=== PATIENT | male | born 1970 | race African-American/Black ===

== ENCOUNTER 2021-03-29 10:53 | Emergency (ER) | payer OTHER, SELFPAY ==
[2021-03-29 10:57] VITALS: BP 152/83; PULSE 94; RESP 16; TEMP 36.6; O2SAT 98
--- NOTE | 2021-03-29 11:08 | ECG_ITS ---
Measurements Intervals [place] Rate: 84 P: 55 MA: 174 QRS: 10 QRSD: 99 T: 67 QT: 360 QTc: 426 Interpretive Statements SINUS RHYTHM NORMAL ECG Electronically Signed On 03-29-2021 15:38:30 CDT by Hermann Mathur D.O.
--- NOTE | 2021-03-29 11:21 | ED.CHESTPAIN ---
HPI - Chest Pain General Chief Complaint: Chest Pain Stated Complaint: chest pain Source: patient and RN notes reviewed Mode of arrival: ambulatory History of Present Illness HPI narrative: This is a 42-year-old male that presented to urgent care today with complaints of chest pains. According to patient he developed chest pain yesterday that lasted approximately 30 minutes at rest. Patient does have a history of hyperlipidemia hypertension and diabetes. Patient notes that he developed more chest pains today he noted that it worsened when he inhaled. Patient noted that he googled the symptoms and attempted to call his primary care physician with no response that is why he proceeded to our office. He also noted that he had congestion and chills last week and was not sure if it could have possibly been pneumonia. Patient will transfer to [facility] he did refuse EMS transportation. Patient was advised against driving himself to the ED report given to Dr. Chen EKG sinus rhythm Related Data Home Medications Medication Instructions Recorded Confirmed atorvastatin 03/29/21 lisinopril-hydrochlorothiazide tablet 03/29/21 metformin mg PO 03/29/21 nebivolol mg 03/29/21 Allergies Allergy/AdvReac Type Severity Reaction Status Date / Time No Known Allergies Allergy Unverified 04/06/18 08:26 Review of Systems Review of Systems: A 14 organ system Review of Systems was performed and pertinent positives included in the HPI, otherwise remaining ROS is negative. [facility] Family History Family History (Updated 03/29/21 @ 11:23 by GURVINDER Valentine) Other Family history non-contributory Exam Narrative: GENERAL: This is a well-nourished, well-developed patient, in no apparent distress. HEAD: normocephalic, atraumatic. EYES: PERRL. Sclera clear/white. Vision is grossly intact. EARS: External ears normal, auditory canals clear and without drainage, TMs normal without perforation. Hearing grossly intact. NOSE: External nose normal with no obvious nasal discharge, nares without redness, no rhinorrhea. THROAT: Mucous membranes moist, posterior pharynx clear. NECK: Neck supple, non-tender without lymphadenopathy, masses or thyromegaly. CARDIOVASCULAR: Regular rate and rhythm without murmurs, gallops, or rubs. RESPIRATORY: Clear to auscultation. Breath sounds equal bilaterally. No wheezes, rales, or rhonchi. GASTROINTESTINAL: Abdomen soft, non-tender, nondistended. Bowel sounds are active. No hepato-splenomegaly, or palpable masses. No guarding. SKIN: warm, intact with no suspicious lesions or rash, good texture and turgor. NEURO: awake, alert, and oriented to person, place and time. There were no obvious focal neurologic abnormalities. Steady gait EXTREMITIES: Normal range of motion. No edema. No calf tenderness. Negative Homans sign bilaterally. BACK: Nontender without deformity or crepitance. No flank tenderness. Course Course Emergency Course: Patient was transferred to [facility] accepted by Dr. Chen Vital Signs Vital signs: Vital Signs Temperature 97.9 F 03/29/21 10:57 Pulse Rate 94 03/29/21 10:57 Respiratory Rate 16 03/29/21 10:57 Blood Pressure 152/83 H 03/29/21 10:57 Pulse Oximetry 98 03/29/21 10:57 Temperature 97.9 F 03/29/21 10:57 Pulse Rate 94 03/29/21 10:57 Respiratory Rate 16 03/29/21 10:57 Blood Pressure 152/83 H 03/29/21 10:57 Pulse Oximetry 98 03/29/21 10:57 Transfer Transfered to: [place] Transfer rationale: Further diagnostic tests needed Accepting physician: Dr Chen MDM - Chest Pain Differential Diagnosis Differential diagnosis: Likely stable angina, unstable angina pectoris, atypical chest pain, chest pain and other (Pneumonia) Discharge Plan Discharge Clinical Impression: Chest pain Patient Disposition: Acute Care Hospital Condition: Stable Additional Instructions: Transferred to [place] Prescriptions: No Action atorvasta
== END 2021-03-29 11:24 | disposition short-term general hospital (02) ==
PROVIDERS: Emergency Provider Nurse Practitioner; PCP Internal Medicine
DX: R07.9 Chest pain, unspecified (principal); E78.5 Hyperlipidemia, unspecified; I10 Essential (primary) hypertension; E11.9 Type 2 diabetes mellitus without complications
CPT/HCPCS: 93005; 99213; G0463

== ENCOUNTER 2021-03-29 11:41 | Emergency (ER) | payer OTHER, SELFPAY ==
[2021-03-29] VITALS (29 sets, daily range): BP systolic 108–139; BP diastolic 57–85; PULSE 83–97; RESP 12–21; TEMP 36.4–36.6; O2SAT 98–100
--- NOTE | ~2021-03-29 | XR_ITS ---
EXAMINATION: XR chest 2V DATE: 03/29/2021 12:27 INDICATION: Chest pain TECHNIQUE: PA and lateral views of the chest are obtained. COMPARISON: None available FINDINGS: The lungs are free of acute opacities. There is no pleural effusion or pneumothorax. The ca rdiomediastinal silhouette is normal. There is moderate thoracic spondylosis. IMPRESSION: 1. No acute cardiopulmonary abnormality. Reviewed, dictated and finalized at location A.
--- NOTE | 2021-03-29 12:02 | ECG_ITS ---
Measurements Intervals [employer] Rate: 89 P: 40 [place]: 171 QRS: 7 QRSD: 102 T: 60 QT: 361 QTc: 442 Interpretive Statements SINUS RHYTHM MINIMAL Q WAVES- HIGH LATERAL LEADS BASELINE WANDER- V5 BORDERLINE ECG Electronically Signed On 03-29-2021 15:43:00 CDT by Hermann Mathur D.O.
--- NOTE | 2021-03-29 12:20 | ED.GENADULT ---
HPI - General Adult General Chief complaint: Chest Pain Stated complaint: chest pain , sent from urgent care Time Seen by Provider: 03/29/21 11:58 Source: patient History of Present Illness HPI narrative: Patient is a 50 y/o male complaining of right sided chest pain starting about 7:30 PM yesterday. He describes his pain as a sharp and rates it as 7/10. Taking a deep breath seems to worsen the pain. There is no pain radiation. The chest pain lasted about 30 minutes and resolved spontaneously. He has no cough, fever or SOB. Related Data Home Medications Medication Instructions Recorded Confirmed atorvastatin 03/29/21 lisinopril-hydrochlorothiazide tablet 03/29/21 metformin mg PO 03/29/21 nebivolol mg 03/29/21 Allergies Allergy/AdvReac Type Severity Reaction Status Date / Time No Known Allergies Allergy Verified 03/29/21 12:00 Review of Systems Constitutional: Constitutional: Denies chills, Denies fever(s), Denies headache(s) and Denies weakness Eyes: Eyes: Denies blurry vision ENT: Denies headache(s) and Denies neck pain Cardiovascular: Cardiovascular: Reports chest pain and Denies dyspnea Respiratory: Respiratory: Denies cough and Denies dyspnea Gastrointestinal: Gastrointestinal: Denies abdominal pain, Denies diarrhea, Denies nausea and Denies vomiting Genitourinary: Genitourinary: Denies hematuria and Denies dysuria Musculoskeletal: Musculoskeletal: Denies back pain and Denies neck pain Neurologic: Denies headache(s) and Denies weakness [facility] Family History Family History Other Family history non-contributory Exam Const: General: no acute distress and well developed Orientation/consciousness: oriented to person, oriented to place, oriented to time and patient oriented x3 HENMT: Head: normocephalic Ears: external ears normal General nose exam: Normal external nose present Eyes: General: appearance normal, both eyes and all related structures Conjunctivae: conjunctivae normal Neck: Neck: normal visual inspection and full ROM Chest: Chest palpation & inspection: normal inspection of the chest and no tenderness Resp: Effort & Inspection: normal respiratory effort Auscultation: clear to auscultation bilaterally Cardio: Rate: regular rate Rhythm: regular rhythm GI: GI Palp: No abdominal tenderness and Yes Soft to palpation Skin: General skin exam: normal color and turgor normal Neuro: General: oriented to person, oriented to place, oriented to time and patient oriented x3 Cognition (Neuro): normal cognition Extrem: General: normal to inspection, full ROM and no pedal edema Psych: Appearance: grossly normal Mental Status: mental status grossly normal Affect: normal affect Course Vital Signs Vital signs: Vital Signs Temperature 36.4 C 03/29/21 11:55 Pulse Rate 94 03/29/21 11:55 Respiratory Rate 19 03/29/21 11:55 Blood Pressure 139/85 03/29/21 11:55 Pulse Oximetry 100 03/29/21 11:55 Temperature 36.6 C 03/29/21 16:42 Pulse Rate 88 03/29/21 16:42 Respiratory Rate 20 03/29/21 16:42 Blood Pressure 108/57 L 03/29/21 16:42 Pulse Oximetry 99 03/29/21 16:42 Medical Decision Making Vital Signs Vital Signs: Vital Signs Temperature 36.4 C 03/29/21 11:55 Pulse Rate 94 03/29/21 11:55 Respiratory Rate 19 03/29/21 11:55 Blood Pressure 139/85 03/29/21 11:55 Pulse Oximetry 100 03/29/21 11:55 Temperature 36.6 C 03/29/21 16:42 Pulse Rate 88 03/29/21 16:42 Respiratory Rate 20 03/29/21 16:42 Blood Pressure 108/57 L 03/29/21 16:42 Pulse Oximetry 99 03/29/21 16:42 Lab Data Result diagrams: 03/29/21 12:18 03/29/21 12:18 Labs: Lab Results 03/29/21 03/29/21 03/29/21 Range/Units 12:18 12:18 12:18 WBC 5.7 (4.5-10.0) K/mm3 RBC 4.82 (4.6-6.20) M/mm3 Hgb 14.1 (14.0-18.0) g/dL Hct 41.3 L (42.0-52.0) % MCV
--- NOTE | 2021-03-29 12:21 | PC.NURSE ---
Pt off floor to radiology
[2021-03-29 12:38] LABS: Alanine Aminotransferase 50 U/L (4-50); Albumin Level 4.9 g/dL (3.5-5.1); Alkaline Phosphatase 51 U/L (38-126); Anion Gap 11 mmol/L (8-16); Aspartate Amino Transferase 46 U/L (17-59); Bilirubin,Total 0.5 mg/dL (0.2-1.3); Blood Urea Nitrogen 22 mg/dL (9-20); Calcium 9.7 mg/dL (8.4-10.2); Carbon Dioxide 29 mmol/L (22-30); Chloride 102 mmol/L (98-107); Estimated CRCL calculation 93 ml/min; Estimated Glomerular Filt Rate > 60; Glucose 97 mg/dL (65-110); Potassium 3.9 mmol/L (3.4-5.0); Sodium 142 mmol/L (137-145)
[2021-03-29 12:39] LABS: Basophils Percent Auto 0.5 % (0.2-1.2); Eosinophils Absolute Auto 0.2 K/mm3 (0-0.3); Eosinophils Percent Auto 3.7 % (0-4.4); Hematocrit 41.3 % (42.0-52.0); Hemoglobin 14.1 g/dL (14.0-18.0); Immature Granulocyte Absolute 0.02 K/mm3 (0.00-0.031); Immature Granulocyte Percent A 0.4 % (0-0.5); Lymphocytes Percent Auto 40.3 % (18.3-44.2); Mean Corpuscular HGB Conc 34.1 g/dl (32-36); Mean Corpuscular Hemoglobin 29.3 pg (26-34); Mean Corpuscular Volume 85.7 fl (80-100); Mean Platelet Volume 10.3 fl (7.4-10.4); Monocytes Absolute Auto 0.6 K/mm3 (0.1-0.6); Monocytes Percent Auto 9.6 % (2.6-8.5); Neutrophils Absolute Auto 2.6 K/mm3 (1.3-6.7); Neutrophils Percent Auto 45.5 % (45.5-73.1); Platelet Count Result 268 k/mm3 (150-375); Red Blood Count 4.82 M/mm3 (4.6-6.20); Red Cell Distribution Width 14.6 % (11.5-14.5); White Blood Count 5.7 K/mm3 (4.5-10.0)
[2021-03-29 12:49] LABS: Troponin I < 0.012 ng/mL (0.000-0.034)
[2021-03-29 13:11] LABS: D Dimer 0.23 ug/mL (<0.48)
[2021-03-29 15:57] LABS: Troponin I < 0.012 ng/mL (0.000-0.034)
== END 2021-03-29 16:43 | disposition home or self-care (01) ==
PROVIDERS: Emergency Provider Emergency Medicine; PCP Internal Medicine
DX: R07.9 Chest pain, unspecified (principal); E11.9 Type 2 diabetes mellitus without complications; I10 Essential (primary) hypertension; E78.00 Pure hypercholesterolemia, unspecified; Z79.84 Long term (current) use of oral hypoglycemic drugs; R94.31 Abnormal electrocardiogram [ECG] [EKG]
CPT/HCPCS: 36415; 71046; 80053; 84484; 85025; 85380; 93005; 99284

== ENCOUNTER 2022-07-02 08:13 | Emergency (ER) | payer OTHER, SELFPAY ==
[2022-07-02 08:26] VITALS: BP 137/90; PULSE 91; RESP 16; TEMP 35.8; O2SAT 100
--- NOTE | 2022-07-02 08:39 | ED.EAR ---
HPI - Ear Problem General Chief complaint: Ear Stated complaint: EARACHE Time Seen by Provider: 07/02/22 08:34 Source: patient Mode of arrival: ambulatory Limitations: no limitations History of Present Illness HPI Narrative: Patient presents today complaining of a one-week history of intermittent right ear pain and fullness. Associated symptoms include some mild nasal congestion and postnasal drainage. He has been using Nasacort, Mucinex, and nausea medication without relief. History of diabetes and hypertension. States blood sugars are well controlled with a weekly injection and metformin. Related Data Home Medications Medication Instructions Recorded Confirmed atorvastatin 20 mg tablet 03/29/21 lisinopril 20 tablet 03/29/21 mg-hydrochlorothiazide 25 mg tablet metformin 500 mg tablet,extended mg PO 03/29/21 release 24 hr nebivolol 5 mg tablet mg 03/29/21 exenatide microspheres 2 mg/0.85 mg subcut 07/02/22 mL subcutaneous auto-injector ([employer]) Allergies Allergy/AdvReac Type Severity Reaction Status Date / Time No Known Allergies Allergy Verified 07/02/22 08:24 [facility] Past Medical History Medical History (Updated 07/02/22 @ 08:43 by Josie Julian, [facility], ) Diabetes Hypertension Family History Family History Other Family history non-contributory Comments At time of signature, I have reviewed and agree with nursing past medical, surgical, social and family history unless otherwise noted. Please see nursing chart for further information. There is no relevant family history pertinent to the presenting complaint Exam Narrative: GENERAL: Well-appearing, well-nourished, and in no acute distress. HEAD: Normocephalic, atraumatic. EYES: EOMI. No redness or drainage. Conjunctivae normal. ENT: Mucous membranes pink and moist. Nares clear. No rhinorrhea. TMs normal bilaterally with bilateral moderate middle ear effusions without evidence of bacterial infection. NECK: Normal AROM. Supple. No lymphadenopathy. CHEST: No respiratory distress. EXTREMITIES: Normal range of motion. No edema. SKIN: Warm, dry, no rash. Capillary refill normal. Normal skin turgor. NEURO: No focal deficits. Alert and oriented x3. Gait steady. PSYCH: Normal affect. No signs of depression or anxiety. Course Course Level of Care: Express Care Visit Vital Signs Vital signs: Vital Signs Temperature 96.5 F L 07/02/22 08:26 Pulse Rate 91 07/02/22 08:26 Respiratory Rate 16 07/02/22 08:26 Blood Pressure 137/90 07/02/22 08:26 Pulse Oximetry 100 07/02/22 08:26 Temperature 96.5 F L 07/02/22 08:26 Pulse Rate 91 07/02/22 08:26 Respiratory Rate 16 07/02/22 08:26 Blood Pressure 137/90 07/02/22 08:26 Pulse Oximetry 100 07/02/22 08:26 Reviewed. Pt has been instructed to follow up with his PCP regarding his elevated blood pressure today. Medical Decision Making MDM Narrative Medical decision making narrative: Patient has bilateral serous effusions. Will prescribe steroids. Anticipatory guidance given to take Coricidin in an inner nasal steroid. Differential Diagnosis Differential Diagnosis: Otitis media, otitis externa, ruptured TM, serous otitis, eustachian tube dysfunction, cerumen impaction Vital Signs Vital Signs: Vital Signs Temperature 96.5 F L 07/02/22 08:26 Pulse Rate 91 07/02/22 08:26 Respiratory Rate 16 07/02/22 08:26 Blood Pressure 137/90 07/02/22 08:26 Pulse Oximetry 100 07/02/22 08:26 Temperature 96.5 F L 07/02/22 08:26 Pulse Rate 91 07/02/22 08:26 Respiratory Rate 16 07/02/22 08:26 Blood Pressure 137/90 07/02/22 08:26 Pulse Oximetry 100 07/02/22 08:26 Critical Care Time Critical Care Time Critical Care Time: No Discharge Plan Discharge Clinical Impression: Acute serous otitis media of both ears Qualifiers: Recurrence: non-recurrent Qual
== END 2022-07-02 08:48 | disposition home or self-care (01) ==
PROVIDERS: Emergency Provider Nurse Practitioner; PCP Internal Medicine
DX: H65.03 Acute serous otitis media, bilateral (principal); E11.9 Type 2 diabetes mellitus without complications; I10 Essential (primary) hypertension
CPT/HCPCS: 99213; G0463

== ENCOUNTER 2023-11-20 10:18 | Emergency (ER) | payer OTHER, SELFPAY ==
--- NOTE | 2023-11-20 10:20 | ED.URI ---
HPI - URI/Sore Throat General Chief Complaint: Upper Respiratory Infection Stated Complaint: Cough/Fever Time Seen by Provider: 11/20/23 10:20 Source: patient Mode of arrival: ambulatory Limitations: no limitations History of Present Illness HPI Narrative: Patient is a 53-year-old male who presents with cough, fever and sore throat since Sunday. tested positive for COVID today. Denies any nausea, vomiting, diarrhea. Related Data Home Medications Medication Instructions Recorded Confirmed atorvastatin 20 mg tablet 20 mg PO DAILY 03/29/21 11/20/23 lisinopril 20 1 tablet PO DAILY 03/29/21 11/20/23 mg-hydrochlorothiazide 25 mg tablet metformin 500 mg tablet,extended 500 mg PO BID 03/29/21 11/20/23 release 24 hr nebivolol 5 mg tablet 5 mg PO DAILY 03/29/21 11/20/23 exenatide microspheres 2 mg/0.85 2 mg subcut WEEKLY 07/02/22 11/20/23 mL subcutaneous auto-injector ([employer]) Allergies Allergy/AdvReac Type Severity Reaction Status Date / Time No Known Allergies Allergy Verified 11/20/23 10:22 Review of Systems Review of Systems: All systems reviewed & are unremarkable except as noted in HPI and below Constitutional: Constitutional: Denies body ache(s), Denies chills, Denies fatigue, Reports fever(s), Denies headache(s), Denies malaise and Denies weakness Eyes: Eyes: Denies blurry vision, Denies itchy eyes and Denies loss of vision ENT: Denies otalgia, Denies headache(s), Denies nasal congestion, Denies sinus pain and Reports sore throat Cardiovascular: Cardiovascular: Denies chest pain, Denies irregular heart rhythm and Denies dyspnea Respiratory: Respiratory: Reports cough and Denies dyspnea Gastrointestinal: Gastrointestinal: Denies abdominal pain, Denies diarrhea, Denies nausea and Denies vomiting Musculoskeletal: Musculoskeletal: Denies back pain, Denies myalgias and Denies arthralgias Integumentary/Breasts: Skin/Breast: Denies pruritus and Denies rash Neurologic: Denies headache(s), Denies loss of vision and Denies weakness Psychiatric: Psychiatric: Reports no additional psychiatric complaints Endocrine: Endocrine: Denies fatigue Allergic/Immunologic: Allergic/Immunologic: Denies itchy eyes PMFSH Past Medical History Medical History Diabetes Hypertension Family History Family History Other Family history non-contributory Comments At time of signature, agree with nursing past medical, surgical, social and family history. There is no relevant family history pertinent to the presenting complaint. Exam Const: General: cooperative, healthy appearing, comfortable, no acute distress and well nourished Nutritional Appearance: well nourished Orientation/consciousness: patient oriented x3 Limitations: no limitations HENMT: Head: normal to inspection, normocephalic and atraumatic Ears: hearing grossly normal bilaterally, external ears normal, TM's normal bilaterally, EAC's normal and no periauricular adenopathy Face/Nose/Sinus: Normal external nose present, Abnormal mucous membranes and turbinates present erythematous bilateral and diffuse, normal facial exam, sinuses nontender and face symmetric Face and sinus: normal facial exam, sinuses nontender and face symmetric Mouth: Yes Normal oral and palatal mucosa present, Yes lip normal, Yes tongue normal, Yes Normal salivary glands and ducts present, Yes oropharynx normal and Yes moist mucous membranes Teeth and gingiva: dentition normal Throat: posterior oropharynx normal, tonsils normal and uvula midline Eyes: General: appearance normal, both eyes and all related structures Alignment and Position: alignment normal and position normal Periorbital: periorbital findings normal Eyelids: eyelids normal Pupils: Equal, round and reactive pupils present Neck: Neck: normal visual inspection, full ROM, no lymphadenopathy and
[2023-11-20 10:23] VITALS: BP 144/94; PULSE 85; RESP 16; TEMP 36.7; O2SAT 100
== END 2023-11-20 11:05 | disposition home or self-care (01) ==
PROVIDERS: Emergency Provider Nurse Practitioner Family; PCP Family Medicine
DX: U07.1 COVID-19 (principal); E11.9 Type 2 diabetes mellitus without complications; I10 Essential (primary) hypertension
CPT/HCPCS: 87426; 99213; G0463

== ENCOUNTER 2024-07-11 10:16 | Emergency (ER) | payer OTHER, SELFPAY ==
[2024-07-11 10:32] VITALS: BP 136/88; PULSE 89; RESP 16; TEMP 36.9; O2SAT 99
--- NOTE | 2024-07-11 10:54 | ED_ITS ---
HPI - Ear Problem General Chief complaint: Ear Stated complaint: bilateral earache Time Seen by Provider: 07/11/24 10:18 Source: patient Mode of arrival: ambulatory Limitations: no limitations History of Present Illness HPI Narrative: Patient is a 53-year-old male who presents with 1 week of bilateral ear pain. Patient also says they feel full like they have water in them. Patient has tried [id number] medication with no relief. MD Complaint: ear pain Related Data Home Medications ?Medication ?Instructions ?Recorded ?Confirmed ?Last Taken ?Type atorvastatin 20 mg tablet 20 mg PO DAILY 03/29/21 11/20/23 Unknown History lisinopril 20 1 tablet PO DAILY 03/29/21 11/20/23 Unknown History mg-hydrochlorothiazide 25 mg tablet metformin 500 mg tablet,extended 500 mg PO BID 03/29/21 11/20/23 Unknown History release 24 hr nebivolol 5 mg tablet 5 mg PO DAILY 03/29/21 11/20/23 Unknown History exenatide microspheres 2 mg/0.85 2 mg subcut WEEKLY 07/02/22 11/20/23 Unknown History mL subcutaneous auto-injector (BydureVirtual 3-D Display for Smartphones[employer]) Allergies Allergy/AdvReac Type Severity Reaction Status Date / Time No Known Allergies Allergy Verified 07/11/24 10:39 Review of Systems Review of Systems: All systems reviewed & are unremarkable except as noted in HPI and below Constitutional: Constitutional: Denies body ache(s), Denies chills, Denies fever(s), Denies headache(s) and Denies malaise Eyes: Eyes: Denies blurry vision, Denies eye discharge and Denies irritation ENT: Reports otalgia, Denies headache(s), Denies nasal congestion, Denies nasal discharge and Denies sore throat Cardiovascular: Cardiovascular: Denies chest pain, Denies edema, Denies palpitations and Denies dyspnea on exertion Respiratory: Respiratory: Denies cough and Denies dyspnea on exertion Gastrointestinal: Gastrointestinal: Denies abdominal pain, Denies diarrhea, Denies nausea and Denies vomiting Musculoskeletal: Musculoskeletal: Denies back pain, Denies arthralgias and Denies muscle weakness Integumentary/Breasts: Skin/Breast: Denies pruritus and Denies rash Neurologic: Denies headache(s) Psychiatric: Psychiatric: Reports no additional psychiatric complaints Endocrine: Endocrine: Denies palpitations PMFSH Past Medical History Medical History Hypertension Diabetes Family History Family History Other Family history non-contributory Comments At time of signature, agree with nursing past medical, surgical, social and family history. There is no relevant family history pertinent to the presenting complaint? Exam Const: General: cooperative, healthy appearing, no acute distress and well nourished Nutritional Appearance: well nourished Orientation/consciousness: patient oriented x3 Limitations: no limitations HENMT: Head: normal to inspection, normocephalic and atraumatic Ears: hearing grossly normal bilaterally, EAC's normal, no periauricular adenopathy and TM abnormal bulging bilateral and erythematous bilateral Face/Nose/Sinus: Normal external nose present, Normal nares present, Normal nasal mucous membranes and turbinates present, No nasal discharge present, normal facial exam and sinuses nontender Face and sinus: normal facial exam and sinuses nontender Mouth: Yes Normal oral and palatal mucosa present, Yes lip normal, Yes tongue normal and Yes moist mucous membranes Throat: posterior oropharynx normal, tonsils normal and uvula midline Eyes: General: appearance normal, both eyes and all related structures Alignment and Position: alignment normal and position normal Eyelids: eyelids normal Pupils: Equal, round and reactive pupils present EOM: EOMs intact bilaterally Neck: Neck: normal visual inspection, full ROM, no lymphadenopathy and supple Chest: Chest palpation & inspection: normal inspection of the chest Resp: Effort & Inspection: normal respiratory effort and able to speak in complete sentences Auscultation: clear to auscultation bilaterally, no crackles, no rales, no rhonchi and no wheezes Cardio: Rate: regular rate Rhythm: regular rhythm Heart sounds: S1 normal heart sound present and S2 normal heart sound present Skin: General skin exam: normal color and no rashes or lesions noted Neuro: General: patient oriented x3 and moves all extremities Cranial nerves: Yes Equal, round and reactive pupils present Cognition (Neuro): normal cognition Speech: normal speech Gait exam (Neuro): Normal gait present Extrem: General: normal to inspection and full ROM Psych: Appearance: grossly normal and well kempt Mental Status: mental status grossly normal Speech and movement: Normal speech and movement present Course Course Emergency Course: Patient is aware of diagnosis, understands and agrees to treatment plan.? Anticipatory guidance given.? Patient agrees to follow-up as directed and is aware of reasons to seek care at the emergency department.? Portions of this record may have been created with voice recognition software? Level of Care: Express Care Visit Vital Signs Vital signs: Vital Signs Temperature 36.9 C 07/11/24 10:32 Pulse Rate 89 07/11/24 10:32 Respiratory Rate 16 07/11/24 10:32 Blood Pressure 136/88 07/11/24 10:32 Pulse Oximetry 99 07/11/24 10:32 Temperature 36.9 C 07/11/24 10:32 Pulse Rate 89 07/11/24 10:32 Respiratory Rate 16 07/11/24 10:32 Blood Pressure 136/88 07/11/24 10:32 Pulse Oximetry 07/11/24 10:32 Oxygen Delivery Room Air 07/11/24 10:33 Reviewed Medical Decision Making MDM Narrative Medical decision making narrative: Pt well hydrated appearing, in no respiratory distress, hemodynamically stable. Recommend supportive care. The patient is stable at time of discharge the clinical impression was discussed and the patient was given the opportunity to ask questions, which were addressed as completely as possible given the information available at present. Anticipatory guidance and return to care precautions were discussed and the importance of primary care follow-up was stressed and encouraged. The patient voiced understanding of the plan, indications to return, and the need for follow-up. Exam findings show no acute concerns or changes Patient is appropriate for outpatient treatment and follow-up. Differential diagnosis considered: Villagran virus, strep pharyngitis, allergic rhinitis, upper respiratory tract infection, sinusitis, rhinosinusitis, nasopharyngitis. viral pharyngitis, otitis media, otitis externa, otitis effu robin, foreign body, cerumen impaction, viral syndrome, and influenza.? Medical Records Medical records reviewed: Yes I reviewed the external patient's medical records. Vital Signs Vital Signs: Vital Signs Temperature 36.9 C 07/11/24 10:32 Pulse Rate 89 07/11/24 10:32 Respiratory Rate 16 07/11/24 10:32 Blood Pressure 136/88 07/11/24 10:32 Pulse Oximetry 99 07/11/24 10:32 Temperature 36.9 C 07/11/24 10:32 Pulse Rate 89 07/11/24 10:32 Respiratory Rate 16 07/11/24 10:32 Blood Pressure 136/88 07/11/24 10:32 Pulse Oximetry 99 07/11/24 10:32 Oxygen Delivery Room Air 07/11/24 10:33 Discharge Plan Discharge Clinical Impression: Otitis media Qualifiers: Otitis media type: suppurative Chronicity: acute Laterality: bilateral Recurrence: non-recurrent Spontaneous tympanic membrane rupture: without spontaneous rupture Qualified Code(s): H66.003 - Acute suppurative otitis media without spontaneous rupture of ear drum, bilateral Patient Disposition: Home, Self-Care Condition: Stable Instructions: Ear Infection (ED) Additional Instructions: Take antibiotics as directed. Recommend antihistamine such as Benadryl at night time and Zyrtec or [place] during the day until symptoms improve Flonase nasal spray, 1 spray in each nostril twice a day for 5 days and then just once a day Also, recommend symptomatic treatment includes: rest, fluids, and increase humidity of the air at home. Recommend Acetaminophen as directed on the bottle to reduce fever, pain Please schedule a follow-up visit with your personal physician for further evaluation and treatment within 3-5days. If your symptoms persist, change or worsen significantly before you can contact your personal physician then please, without delay, go to the emergency department for further evaluation. Patient Language: Grenadian Prescriptions: New amoxicillin 875 mg tablet 875 mg PO Q12H 7 Days Qty: 14 0RF fluticasone propionate [Flonase Allergy Relief] 50 mcg/actuation spray,suspension 1 spray intranasal DAILY Qty: 16 0RF Rx Instructions: administer into each nostril No Action atorvastatin 20 mg tablet 20 mg PO DAILY lisinopril-hydrochlorothiazide 20-25 mg tablet 1 tablet PO DAILY metformin 500 mg tablet extended release 24 hr 500 mg PO BID nebivolol 5 mg tablet 5 mg PO DAILY Bydureon BCise 2 mg/0.85 mL auto-injector 2 mg SUBCUT WEEKLY molnupiravir 200 mg capsule 800 mg PO Q12H 5 Days Qty: 40 0RF Follow-up/Referrals: Popeye,Jan Hyman MD [Primary Care Provider] - 3 Days Time of Disposition: 11:08
== END 2024-07-11 11:10 | disposition home or self-care (01) ==
PROVIDERS: Emergency Provider Nurse Practitioner Family; PCP Family Medicine
DX: H66.003 Acute suppurative otitis media without spontaneous rupture of ear drum, bilateral (principal); I10 Essential (primary) hypertension; E11.9 Type 2 diabetes mellitus without complications; Z79.84 Long term (current) use of oral hypoglycemic drugs
CPT/HCPCS: 99213; G0463